=== PATIENT | female | born 1970 | race Caucasian/White ===

== ENCOUNTER → 2024-09-06 | Outpatient (CLI) | payer SELFPAY ==
--- NOTE | 2024-09-06 | LES_PTH ---
PATIENT: Rachel BREWER LOC: [facility] U#:[id number] AGE/SX: 54/F ROOM: RE09/06/[address]: Dr. Abel Terrazas MD : [id number] BED: DIS: 09/06/2024 SPEC #: [id number] RECD: 09/07/24 11:51 STATUS: MECHELLE CARLISLE #: [id number] BILL: 09/06/24 00:[address]: Abel Terrazas DEPT: SURGICAL PATHOLOGY RECD BY: Demario Coughlin ENTERED: 09/07/24 11:52 SP TYPE: Lesion OTHR DR: Dr. Briseida Stephenson MD Tissues: Skin of eyelid, NOS Procedures: Surgery Specimen Level IV HEADER OPERATION: Right lower eyelid lesion excision PRE-OP DIAGNOSIS: Right lower eyelid lesion TISSUE SUBMITTED: Right lower eyelid lesion MICROSCOPIC DIAGNOSIS Right lower eyelid lesion, excisional biopsy: Consistent with Xanthoma. Chronic inflammation. Negative for malignancy. See comment. DIPAK. 09/10/2024 COMMENT Clinical correlation and appropriate follow up are necessary. MICROSCOPIC DESCRIPTION Slides are reviewed. GROSS DESCRIPTION Received in fixative is one container labeled with the patient's name and designated Right lower eyelid lesion. The specimen consists of a piece of muñoz-brown skin measuring 1.1 x 0.1 x 0.1cm. The specimen is inked and submitted entirely in one cassette. DIPAK. 09/07/2024 TC:1 CPT:33692
== END | disposition home or self-care (01) ==
LOC: LABSPEC 15:44
PROVIDERS: PCP Internal Medicine; Referring Provider Surgery Plastic and Reconstructive Surgery; Visit Provider Surgery Plastic and Reconstructive Surgery
DX: D23.10 Other benign neoplasm of skin of unspecified eyelid, including canthus (principal)
CPT/HCPCS: 88305